=== PATIENT | female | born 1980 | race Two or more races ===

== ENCOUNTER 2018-08-14 09:45 | Observation (INO) | payer MEDICAID ==
[2018-08-14] MEDS ORDERED: PREN-145 OR (10:25)
== END 2018-08-14 11:50 | disposition home or self-care (01) | DRG 566 ==
LOC: LDRP 09:45
PROVIDERS: ADMIT Specialist; ATTEND Specialist
DX: O24.419 Gestational diabetes mellitus in pregnancy, unspecified control (principal); O09.523 Supervision of elderly multigravida, third trimester; Z3A.33 33 weeks gestation of pregnancy
CPT/HCPCS: 59025; 76818; 81002; 82948; G0378

== ENCOUNTER 2018-08-17 10:24 | Observation (INO) | payer MEDICAID ==
[~2018-08-17 10:24] MED LIST: PREN-145 OR
== END 2018-08-17 13:25 | disposition home or self-care (01) | DRG 566 ==
LOC: LDRP 10:24
PROVIDERS: ADMIT Obstetrics & Gynecology; ATTEND Obstetrics & Gynecology
DX: O24.419 Gestational diabetes mellitus in pregnancy, unspecified control (principal); O09.523 Supervision of elderly multigravida, third trimester; Z3A.33 33 weeks gestation of pregnancy
CPT/HCPCS: 59025; 76818; 81002; 82948; 82962; G0378

== ENCOUNTER 2018-08-24 11:00 | Observation (INO) | payer MEDICAID | END 2018-08-24 12:25 | disposition home or self-care (01) | DRG 566 | LOC: LDRP 11:00 | PROVIDERS: ADMIT Obstetrics & Gynecology; ATTEND Obstetrics & Gynecology | DX: O24.419 Gestational diabetes mellitus in pregnancy, unspecified control (principal); O09.523 Supervision of elderly multigravida, third trimester; Z3A.34 34 weeks gestation of pregnancy | CPT/HCPCS: 59025; 76818; 81002; 82962; G0378 ==

== ENCOUNTER 2018-08-27 09:45 | Observation (INO) | payer MEDICAID ==
[2018-08-27 10:55] LABS: Basophils # (auto) 0.1 uL; Basophils % (auto) 0.7 % (0.0-2.0); Eosinophils # (auto) 0 uL; Eosinophils % (auto) 0.5 % (0.0-7.0); Hematocrit 37.8 % (36.0-46.0); Hemoglobin 12.8 g/dL (12.2-16.2); Lymphocytes # (auto) 1.3 uL; Lymphocytes % (auto) 15.3 % (10.0-50.0); Mean Corpuscular Hemoglobin 29.8 pg (28.0-32.0); Mean Corpuscular Hgb Conc. 33.7 g/dL (32.0-36.0); Mean Corpuscular Volume 88.2 fL (80.0-100.0); Monocytes # (auto) 0.6 uL; Monocytes % (auto) 7.9 % (0.0-12.0); Neutrophils # (auto) 6.2 uL; Neutrophils % (auto) 75.6 % (37.0-80.0); Platelet Count (auto) 298 10^3/uL (140-450); Red Blood Cells 4.29 10^6/uL (4.0-5.20); Red Cell Distribution Width 14.2 % (11.8-14.3); White Blood Cell 8.2 10^3/uL (4.4-10.8)
[2018-08-27] MEDS ORDERED: GLYB2.5T8 PO (11:05)
[2018-08-28 05:09] LABS: RPR Non Reactive (Non Reactive)
== END 2018-08-27 11:50 | disposition home or self-care (01) | DRG 566 ==
LOC: LDRP 09:45
PROVIDERS: ADMIT Obstetrics & Gynecology; ATTEND Obstetrics & Gynecology
DX: O24.419 Gestational diabetes mellitus in pregnancy, unspecified control (principal); O26.893 Other specified pregnancy related conditions, third trimester; R76.8 Other specified abnormal immunological findings in serum; Z3A.35 35 weeks gestation of pregnancy
CPT/HCPCS: 36415; 59025; 76818; 81002; 82962; 85025; 86592; G0378

== ENCOUNTER 2018-08-31 09:45 | Observation (INO) | payer MEDICAID ==
[~2018-08-31] VITALS: Ht 160 cm; Wt 81.6 kg
[~2018-08-31 09:45] MED LIST changes: +GLYB2.5T8 PO
== END 2018-08-31 11:20 | disposition home or self-care (01) | DRG 566 ==
LOC: LDRP 09:45
PROVIDERS: ADMIT Specialist; ATTEND Specialist
DX: O24.419 Gestational diabetes mellitus in pregnancy, unspecified control (principal); Z3A.35 35 weeks gestation of pregnancy
CPT/HCPCS: 59025; 76818; 81002; 82962; G0378

== ENCOUNTER 2018-09-03 14:39 | Observation (INO) | payer MEDICAID | END 2018-09-03 16:20 | disposition home or self-care (01) | DRG 566 | LOC: LDRP 14:39 | PROVIDERS: ADMIT Obstetrics & Gynecology; ATTEND Obstetrics & Gynecology | DX: O24.419 Gestational diabetes mellitus in pregnancy, unspecified control (principal); Z3A.36 36 weeks gestation of pregnancy | CPT/HCPCS: 59025; 76818; 81002; 82948; 82962; G0378 ==

== ENCOUNTER 2018-09-07 09:40 | Observation (INO) | payer MEDICAID ==
[~2018-09-07] VITALS: Ht 162.6 cm; Wt 91.2 kg
== END 2018-09-07 11:25 | disposition home or self-care (01) | DRG 566 ==
LOC: LDRP 09:40
PROVIDERS: ADMIT Specialist; ATTEND Specialist
DX: O24.419 Gestational diabetes mellitus in pregnancy, unspecified control (principal); Z3A.36 36 weeks gestation of pregnancy
CPT/HCPCS: 59025; 76818; 81002; 82948; 82962; G0378

== ENCOUNTER 2018-09-10 15:14 | Observation (INO) | payer MEDICAID | END 2018-09-10 16:05 | disposition home or self-care (01) | DRG 566 | LOC: LDRP 15:14 | PROVIDERS: ADMIT Specialist; ATTEND Specialist | DX: O24.419 Gestational diabetes mellitus in pregnancy, unspecified control (principal); Z3A.37 37 weeks gestation of pregnancy | CPT/HCPCS: 59025; 76818; 81002; 82948; 82962; G0378 ==

== ENCOUNTER 2018-09-14 10:02 | Observation (INO) | payer MEDICAID | END 2018-09-14 11:10 | disposition home or self-care (01) | DRG 566 | LOC: LDRP 10:02 | PROVIDERS: ADMIT Obstetrics & Gynecology; ATTEND Obstetrics & Gynecology | DX: O24.419 Gestational diabetes mellitus in pregnancy, unspecified control (principal); Z3A.37 37 weeks gestation of pregnancy | CPT/HCPCS: 59025; 76818; 81002; 82948; G0378 ==

== ENCOUNTER 2018-09-17 09:45 | Observation (INO) | payer MEDICAID ==
[~2018-09-17] VITALS: Ht 162.6 cm; Wt 91.2 kg
[2018-09-17] MEDS ORDERED: NIFEdipine 10 MG CAP PO ONE ×2 (10:45→11:30)
[2018-09-17] MEDS ORDERED: TERBUTALINE SULFATE 1 MG/ML 1ML VIAL SC SCH (10:45)
[2018-09-18] MEDS ORDERED: NIF10C PO (06:54)
== END 2018-09-17 12:30 | disposition home or self-care (01) | DRG 566 ==
LOC: LDRP 09:45
PROVIDERS: ADMIT Obstetrics & Gynecology; ATTEND Obstetrics & Gynecology
DX: O24.419 Gestational diabetes mellitus in pregnancy, unspecified control (principal); Z3A.00 Weeks of gestation of pregnancy not specified
CPT/HCPCS: 59025; 76818; 81002; 82948; 82962; 94760; 96372; G0378

== ENCOUNTER 2018-09-17 19:07 | Inpatient (IN) | payer MEDICAID ==
[~2018-09-17] VITALS: Ht 157.5 cm; Wt 91.2 kg
[2018-09-17] MEDS: TERBUTALINE SULFATE 1 MG/ML 1ML VIAL SC SCH ×2 (19:15→19:35)
[2018-09-17] MEDS ORDERED: LACTATED RINGER'S 1,000 ML IV ONE (20:04)
[2018-09-17 21:02] LABS: Basophils # (auto) 0 uL; Basophils % (auto) 0.3 % (0.0-2.0); Eosinophils # (auto) 0 uL; Eosinophils % (auto) 0.3 % (0.0-7.0); Hematocrit 36.9 % (36.0-46.0); Hemoglobin 12.5 g/dL (12.2-16.2); Lymphocytes # (auto) 1.8 uL; Lymphocytes % (auto) 19.1 % (10.0-50.0); Mean Corpuscular Hemoglobin 29.8 pg (28.0-32.0); Mean Corpuscular Volume 87.8 fL (80.0-100.0); Monocytes % (auto) 10.6 % (0.0-12.0); Neutrophils # (auto) 6.4 uL; Neutrophils % (auto) 69.7 % (37.0-80.0); Nucleated Red Blood Cells % 0.1 %; Platelet Count (auto) 295 10^3/uL (140-450); Red Blood Cells 4.21 10^6/uL (4.0-5.20); White Blood Cell 9.2 10^3/uL (4.4-10.8)
[2018-09-17 21:08] LABS: INR 0.88 (0.9-1.15); Partial Thromboplastin Time 25.5 sec (23.78-33.04); Prothrombin Time 9.5 sec (9.27-12.13)
[2018-09-17 21:15] LABS: Albumin 2.6 g/dL (3.4-5.0); BUN/Creatinine Ratio 16.9; Calcium 8.3 mg/dL (8.5-10.1); Potassium 3.4 mmol/L (3.5-5.1)
[2018-09-17 21:18] LABS: Bilirubin, Total 0.2 mg/dL (0.2-1.0); Total Protein 6.8 g/dL (6.4-8.2)
[2018-09-17] MEDS ORDERED: TETRACAINE 1% INJ 2 ML VIAL IJ ONE (21:25)
[2018-09-17] MEDS ORDERED: ONDANSETRON HCL 4 MG/2 ML VIAL ONE (21:26)
[2018-09-17] MEDS ORDERED: MORPHINE SULF(PF) 0.5MG/ML 10ML VIAL ONE (21:26)
[2018-09-17] MEDS ORDERED: ceFAZolin 1GM VL ONE (21:26)
[2018-09-17] MEDS ORDERED: OXYTOCIN 10 UNIT/ML 10ML VIAL ONE (21:26)
[2018-09-17] MEDS ORDERED: SODIUM CHLORIDE LOCK 10 ML ONE (21:26)
[2018-09-17] MEDS ORDERED: fentaNYL CITRATE 100 MCG/2 ML VL ONE (21:26)
[2018-09-17] MEDS ORDERED: MIDAZOLAM HCL 1MG/1ML-2 ML VIAL ONE (21:26)
[2018-09-17 21:44] LABS: Urine Bacteria MANY /hpf (None Seen); Urine Blood Negative /uL (Negative); Urine Specific Gravity 1.007 (1.001-1.035); Urine WBC 1 /hpf (0 - 5)
[2018-09-17] MEDS ORDERED: ONDANSETRON HCL 4 MG/2 ML VIAL IV PRN (22:00)
[2018-09-17] MEDS ORDERED: MORPHINE SULFATE 4 MG/ML SYR/VIAL IV PRN (22:00)
[2018-09-17] MEDS ORDERED: ceFAZolin 1GM/50ML 50 ML IV SCH (22:00)
[2018-09-17] MEDS ORDERED: SODIUM CHLORIDE LOCK 20 ML ONE (22:51)
[2018-09-17] MEDS ORDERED: MEPERIDINE HCL (50 MG/ML) 1 ML VIAL ONE (23:04)
[2018-09-17] MEDS ORDERED: KETOROLAC TROMETH 30 MG/ML 1ML VIAL IV ONE (23:30)
[2018-09-17] MEDS ORDERED: ACCU-CHEK COMFORT CURVE STRIP VI ONE (23:30)
[2018-09-17] MEDS ORDERED: METOCLOPRAMIDE HCL 5MG/ml INJ 2ml VIAL IV ONE (23:30)
[2018-09-17] MEDS ORDERED: diphenhdrAMINE HCL 50 MG/1 ML VL IV PRN (23:30)
[2018-09-17] MEDS ORDERED: NALOXONE HCL 0.4 MG/ML VIAL IV PRN (23:30)
[2018-09-17] MEDS ORDERED: ACETAMINOPHEN IV 1000 MG/100ML (10MG/ML) IV ONE (23:30)
[2018-09-17] MEDS ORDERED: HYDROmorphone HCL 2 MG/ML VL IV PRN (23:30)
[2018-09-18] VITALS (15 sets, daily range): BP systolic 97–131; BP diastolic 56–87
--- NOTE | 2018-09-18 | NUR ---
Post Op for LDRP: Received patient from [employer] MECHANICRICHARD Goetz via bed to room. Patient A/A/Ox4, abdominal binder and bilateral SCD's are in place, IV fluids placed on pump and infusing per order, incisional site dressing clean/dry/intact and Cox Catheter to gravity draining clear yellow urine. Incentive Spirometer at bedside and instruction on proper use with return demonstration done by patient.
[2018-09-18] MEDS ORDERED: ceFAZolin 1GM/50ML 50 ML IV SCH ×2 (03:40→14:00)
[2018-09-18] MEDS: LACT. RINGERS/OXYTOCIN 20UNITS 1,000 ML IV SCH ×2 (04:31)
[2018-09-18] MEDS ORDERED: NIF10C PO (06:54)
[2018-09-18 08:18] LABS: Basophils # (auto) 0 uL; Basophils % (auto) 0.1 % (0.0-2.0); Eosinophils # (auto) 0 uL; Eosinophils % (auto) 0.2 % (0.0-7.0); Hematocrit 35.7 % (36.0-46.0); Hemoglobin 12.1 g/dL (12.2-16.2); Lymphocytes # (auto) 1.1 uL; Lymphocytes % (auto) 10.7 % (10.0-50.0); Mean Corpuscular Hemoglobin 30.3 pg (28.0-32.0); Mean Corpuscular Hgb Conc. 33.9 g/dL (32.0-36.0); Mean Corpuscular Volume 89.4 fL (80.0-100.0); Neutrophils # (auto) 7.8 uL; Platelet Count (auto) 237 10^3/uL (140-450); Red Blood Cells 3.99 10^6/uL (4.0-5.20); White Blood Cell 9.9 10^3/uL (4.4-10.8)
[2018-09-18] MEDS ORDERED: LACTATED RINGER'S 1,000 ML IV SCH (08:30)
--- NOTE | 2018-09-18 08:32 | NUR ---
DR. NELSON AT PT BEDSIDE, STATUS UPDATE GIVEN. DR. NELSON NOTIFIED THAT PT HAS ACTIVE BOWEL SOUNDS, DENIES FLATUS AT THIS TIME. ORDERS RECEIVED FROM DR. NELSON FOR PT TO AMBULATE, POST OP DAY 1 ORDERS, DECREASE IV LR FLUIDS TO 60ML/HR, KEEP VELÁZQUEZ CATHETER IN AND MEASURE OUTPUTS UNTIL 1900 TONIGHT THEN RE-EVALUATE. READ BACK AND VERIFIED ORDERS. WILL CARRY OUT.
[2018-09-18] MEDS ORDERED: HYDROcodone-ACET 5/325MG TAB PO PRN (10:00)
[2018-09-18] MEDS ORDERED: BISACODYL 10 MG RECT SUPP PR PRN (10:00)
[2018-09-18] MEDS: DOCUSATE CALCIUM 240 MG CAP PO SCH (10:34)
[2018-09-18] MEDS: DOCUSATE SOD 100 MG CAP PO SCH ×2 (10:34→21:05)
[2018-09-18] MEDS: IBUPROFEN 800 MG TAB PO PRN ×2 (10:39→21:05)
--- NOTE | 2018-09-18 11:15 | NUR ---
Ambulation: Patient OOB with standby assistance by RN. Patient ambulated to bathroom with steady gait. Patients renee catheter is patent and draining clear, yellow urine to gravity. Pericare teaching provided with returned demonstration by patient. Clean gown provided and bed linen changed. Patient ambulated back to bed with steady gait and no distress noted. Pt ambulated with steady gait to bedside chair. No s/s of distress or sob noted. Will continue to monitor.
[2018-09-18] MEDS: SIMETHICONE 80 MG CHEWABLE TABLET PO SCH ×3 (12:02→21:06)
[2018-09-18] MEDS: HYDROcodone-ACET 5/325MG TAB PO PRN ×3 (13:54→22:34)
[2018-09-18] MEDS: ceFAZolin 1GM/50ML 50 ML IV SCH (15:24)
--- NOTE | 2018-09-18 18:09 | NUR ---
PT REPORT GIVEN TO FLORENCIO RAMOS ON STABLE PATIENT. NO S/S OF DISTRESS OR SOB NOTED, RELINQUISHED CARE.
--- NOTE | 2018-09-18 18:10 | NUR ---
Received report, assumed care from Cesar RAMOS
--- NOTE | 2018-09-18 19:00 | NUR ---
Reviewed plan of care, discussed goals, and pain scale. Pt verbalized understanding. Initiated assessment. See flowsheet for complete data. Cox catheter removed with minimal discomfort per pt after baloon deflated. 200 cc's clear yellow urine in Cox bag documented in I's and O's.10/25 pain, admin 2 [place] and pt stated she is going to ambulate. Will reassess
--- NOTE | 2018-09-18 21:00 | NUR ---
Out of bed to void, 600 cc's clear yellow urine. Pt complains of pain, bilateral of site of incision. Encouraged pt to ambulate. Administered 800mg motrin PO.
--- NOTE | 2018-09-18 21:30 | NUR ---
Patient ambulated 400 feet, tolerated well.
--- NOTE | 2018-09-18 21:46 | NUR ---
Pt states pain is at a tolerable level 5/10.
[2018-09-19] VITALS (7 sets, daily range): BP systolic 107–125; BP diastolic 52–79
[2018-09-19] MEDS: ceFAZolin 1GM/50ML 50 ML IV SCH (00:05)
[2018-09-19] MEDS: HYDROcodone-ACET 5/325MG TAB PO PRN ×3 (02:38→10:42)
--- NOTE | 2018-09-19 07:22 | NUR ---
Encouraged patient to use IS devise and take deep breathes as well as ambulating. Patient verbalizes understanding. Addendum: 09/19/18 at 0722 by Luisa Hermosillo RN Amended: Links added.
[2018-09-19] MEDS: SIMETHICONE 80 MG CHEWABLE TABLET PO SCH ×4 (07:49→21:02)
[2018-09-19] MEDS: DOCUSATE CALCIUM 240 MG CAP PO SCH (09:37)
[2018-09-19] MEDS: IBUPROFEN 800 MG TAB PO PRN (09:37)
[2018-09-19] MEDS: DOCUSATE SOD 100 MG CAP PO SCH ×2 (09:37→21:02)
--- NOTE | 2018-09-19 14:45 | NUR ---
Spoke to Dr. Cowart regarding patient pain control . Patient continues to request [place] every 3-4 hours and is exceeding her Acetaminophen limit. Orders received to change Redford to 10/325 Q 4 hours as needed and also add Toradol 15 mg Q 6 hours scheduled for the next 24 hours and then Q 6 prn. Orders read back to be implemented.
[2018-09-19] MEDS ORDERED: KETOROLAC TROMETH 30 MG/ML 1ML VIAL IV PRN (15:00)
--- NOTE | 2018-09-19 17:48 | NUR ---
Spoke to Dr. Cowart reported patients complaint of chills suddenly and askign for blanket. Reported intial temp of 100.8 and 99.6 after cooling measures. Orders received to start Zosyn 3.6 IVPB at 50 ml/hour. Orders read back to be implemented. Continued care. Addendum: 09/19/18 at 1750 by Luisa Hermosillo RN Amended: Links added.
[2018-09-19] MEDS ORDERED: PIPERACILLIN-TAZOB 3.375GM 100 ML IV SCH (18:00)
[2018-09-19] MEDS ORDERED: ACETAMINOPHEN 325 MG TAB PO PRN (18:45)
--- NOTE | 2018-09-19 18:45 | NUR ---
Attempt IV start 18 guage, unsuccessful x's 1 attempt
[2018-09-19 18:57] LABS: Basophils # (auto) 0 uL; Basophils % (auto) 0.3 % (0.0-2.0); Eosinophils # (auto) 0 uL; Eosinophils % (auto) 0.4 % (0.0-7.0); Hematocrit 39.3 % (36.0-46.0); Lymphocytes # (auto) 1.1 uL; Lymphocytes % (auto) 10.6 % (10.0-50.0); Mean Corpuscular Hemoglobin 29.6 pg (28.0-32.0); Mean Corpuscular Volume 89.9 fL (80.0-100.0); Monocytes # (auto) 0.9 uL; Monocytes % (auto) 8.6 % (0.0-12.0); Neutrophils # (auto) 7.9 uL; Neutrophils % (auto) 80.1 % (37.0-80.0); Platelet Count (auto) 247 10^3/uL (140-450); Red Blood Cells 4.37 10^6/uL (4.0-5.20); Red Cell Distribution Width 15.2 % (11.8-14.3); White Blood Cell 9.9 10^3/uL (4.4-10.8)
--- NOTE | 2018-09-19 19:00 | NUR ---
Assessment complete, Patient returned from the bathroom after passing large amount of gas and small bowel movement. Assessed incision, at the site of incision, moist and pink. Peripad placed below pannis to absorb moisture.
--- NOTE | 2018-09-19 19:00 | NUR ---
Temperature 102.8, admin [place] 10/325 for pain and fever
[2018-09-19] MEDS: HYDROcodone-ACET 10/325MG TAB PO PRN ×2 (19:15→23:26)
--- NOTE | 2018-09-19 19:33 | NUR ---
IV to right wrist, 20g started, IV zosyn started as per ordered
[2018-09-19] MEDS: PIPERACILLIN-TAZOB 3.375GM 100 ML IV SCH (19:35)
--- NOTE | 2018-09-19 19:45 | NUR ---
Update provided to Dr Cowart, labs, temperature, New IV start, New orders received to implement cooling measures.
--- NOTE | 2018-09-19 19:59 | NUR ---
Cooling measures admin icepacks to groin, armpits and neck. Pt is drinking 750 ice water, IV zosyn continues to run at 33.33 mL/hr to be completed in 3 hours
--- NOTE | 2018-09-19 20:33 | NUR ---
In depth education provided with Incentive spirometer. Pt able to reach 1100. Pt verbalized understanding regarding IS exercise to be completed 10x's hour.
[2018-09-19] MEDS: KETOROLAC TROMETH 30 MG/ML 1ML VIAL IV PRN (21:01)
--- NOTE | 2018-09-19 21:10 | NUR ---
Oral temperature 102.7, ketoraloc admin per MD orders
[2018-09-19] MEDS ORDERED: WITCH HAZEL-GLYCERIN PAD TOP PRN (22:15)
[2018-09-20] MEDS: PIPERACILLIN-TAZOB 3.375GM 100 ML IV SCH ×4 (01:40→17:35)
[2018-09-20 03:00] VITALS: BP 101/63
[2018-09-20] MEDS: KETOROLAC TROMETH 30 MG/ML 1ML VIAL IV PRN ×2 (03:00→10:36)
[2018-09-20] MEDS: HYDROcodone-ACET 5/325MG TAB PO PRN (03:32)
[2018-09-20] MEDS: SIMETHICONE 80 MG CHEWABLE TABLET PO SCH ×4 (08:02→22:30)
[2018-09-20] MEDS: HYDROcodone-ACET 10/325MG TAB PO PRN ×4 (08:36→21:46)
[2018-09-20] MEDS: DOCUSATE CALCIUM 240 MG CAP PO SCH (10:35)
[2018-09-20] MEDS: DOCUSATE SOD 100 MG CAP PO SCH ×2 (10:35→22:30)
[2018-09-20 11:00] VITALS: BP 110/71
[2018-09-20 15:00] VITALS: BP 114/79
[2018-09-20] MEDS: IBUPROFEN 800 MG TAB PO PRN (16:29)
[2018-09-20 18:50] VITALS: BP 110/74
--- NOTE | 2018-09-20 22:15 | NUR ---
Spoke with KELLY JORDAN via telephone report given on pt's status: pt has been afebrile and that pt is complaining of a rash around her abd. where the abd. binder was placed, and reported that I had the patient shower to help relieve the discomfort of the rash. After her shower the rash appeared less red and pt verbalized relief of discomfort from rash after her shower. Per KELLY pt may have Benadryl for the itching and that Zosyn may be discontinued.
[2018-09-20 23:00] VITALS: BP 127/76
--- NOTE | 2018-09-20 23:02 | NUR ---
IV infilterate noted to right hand. IV discontinued and catheter removed and intact.
[2018-09-21] MEDS: IBUPROFEN 800 MG TAB PO PRN ×2 (00:52→08:29)
[2018-09-21 03:30] VITALS: BP 124/78
[2018-09-21] MEDS: HYDROcodone-ACET 10/325MG TAB PO PRN (03:52)
[2018-09-21] MEDS ORDERED: MEASLES, MUMPS & RUBELLA VAC(MMRII) 0.5ML SC ONE (07:00)
[2018-09-21 07:15] VITALS: BP 11/75
--- NOTE | 2018-09-21 07:15 | NUR ---
CALLED Ann [employer] DRAWER TO MAKE AWARE PATIENT TEMP IS 99.3 TAKEN TWICE 5 MIN APART. PATIENT HAS A RASH THAT IS WARM TO THE TOUCH ALL OVER ABD AREA. NEW ORDERS RECEIVED START AN IV AND START MEDICATION ZOSYN AGAIN AND GIVE HYDROCORTISONE CREAM 1% BID.
--- NOTE | 2018-09-21 07:15 | NUR ---
C/S Staple Removal DC Note: Orders received to remove alexander PER Ann [employer] MAKER. Alexander removed using sterile technique. Lower abdominal incision approximated, no drainage/redness/inflammation visualized at time of removal. Steri-strips applied. Education provided on incisional care. Patient verbalized understanding and willingness to comply to instructions/teaching provided.
[2018-09-21] MEDS ORDERED: PIPERACILLIN-TAZOB 3.375GM 100 ML IV SCH (08:00)
[2018-09-21] MEDS ORDERED: cefTRIAXone SOD 1,000 MG VL IM ONE (08:45)
--- NOTE | 2018-09-21 08:45 | NUR ---
SBAR REPORT GIVEN TO DR. NELSON PATIENT HAS NO IV SITE AVAILABLE READ ALL VITALS AND PATIENT HAS A RASH ON ABD AREA . NEW ORDERS RECEIVED GIVE 1 GRAM ROCEPHIN BY IM AND CALL PHARMACY OF CHOICE MEDICATION 500 MG/PO/QID TIMES 7 DAYS.PATIENT WANTS [facility] IN [place] ON [address] PER PATIENT.
--- NOTE | 2018-09-21 09:05 | NUR ---
CALLED PHARMACY OF PATIENTS CHOICE [facility] [phone] WITH MEDICATION KEFLEX 500 MG/PO QID/TIMES 7 .
--- NOTE | 2018-09-21 09:30 | NUR ---
Discharge: Discharge instructions given as ordered. Pt encouraged to follow up with [employer] SUPERVISOR as instructed. All questions and concerns addressed. Patient verbalized understanding. Medication reconciliation completed and copy given to patient. pATIENT REFUSED MMR AND STATES SHE WILL FOLLOW UP WITH DR. NELSON ON NEXT APPOINTMENT. Patient encouraged to prepare to depart unit.
--- NOTE | 2018-09-21 09:30 | NUR ---
Discharge: Discharge instructions given to mother of baby as ordered. Copies of and hearing screening, along with vaccination record given to mother. Mother encouraged to follow up with [facility]ing Paralegal of choice and to give envelope with infants information to case management associate at 1st office visit. All questions and concerns addressed. Mother of baby verbalized understanding and agreed to comply. Mother of baby encouraged to prepare for departure and notify RN ready to leave room for ID band removal/verification and car seat check.
[2018-09-21] MEDS ORDERED: HYDROCORTONE 1% TOPICAL CREAM 30 GM TUBE TOP SCH (10:00)
[2018-09-21] MEDS: DOCUSATE CALCIUM 240 MG CAP PO SCH (10:00)
[2018-09-21] MEDS: DOCUSATE SOD 100 MG CAP PO SCH (10:15)
--- NOTE | 2018-09-21 10:22 | NUR ---
Discharge: Patient taken to vehicle via AMBULATION with all personal belongings, accompanied by staff and family member. No distress noted at time of departure, no adverse changes in status since initial assessment.
== END 2018-09-21 10:22 | disposition home or self-care (01) | DRG 540 ==
LOC: LDRP 19:07 → OBSVTOIN 20:43 → LDRP 09-18 19:58
PROVIDERS: ADMIT Obstetrics & Gynecology; ATTEND Obstetrics & Gynecology
PROC: 0UL70CZ Occlusion of Bilateral Fallopian Tubes with Extraluminal Device, Open Approach (ICD-10-PCS; 2018-09-17)
PROC: 10D00Z1 Extraction of Products of Conception, Low, Open Approach (ICD-10-PCS; principal; 2018-09-17 21:30)
DX: O34.211 Maternal care for low transverse scar from previous cesarean delivery (principal); O24.429 Gestational diabetes mellitus in childbirth, unspecified control; Z37.0 Single live birth; Z3A.34 34 weeks gestation of pregnancy
CPT/HCPCS: 36415; 51702; 59025; 76818; 80053; 81001; 81002; 82948; 82962; 85025; 85610; 85730; 86592; 86850; 86900; 86901; 94760; 96361; 96366; 96372; 96374; 96375; G0378; J0131; J0690; J1885; J2250; J2405; J2543; J2590

== ENCOUNTER 2018-09-24 15:08 | Emergency (ER) | payer MEDICAID ==
[~2018-09-24] VITALS: Ht 160 cm; Wt 88.0 kg
[~2018-09-24 15:08] MED LIST changes: -GLYB2.5T8 PO
[2018-09-24 15:59] VITALS: BP 125/91
[2018-09-24] MEDS ORDERED: diphenhdrAMINE HCL 50 MG/1 ML VL IM ONE (16:15)
[2018-09-24] MEDS ORDERED: EPINEPHrine HCL 1 MG/1 ML AMP SC ONE (16:15)
== END 2018-09-24 16:56 | disposition home or self-care (01) ==
LOC: ER 15:08
DX: O98.83 Other maternal infectious and parasitic diseases complicating the puerperium (principal); B37.2 Candidiasis of skin and nail; T78.40XA Allergy, unspecified, initial encounter; X58.XXXA Exposure to other specified factors, initial encounter
CPT/HCPCS: 96372; 99283; J0171; J1200

== ENCOUNTER 2022-08-09 14:58 | Emergency (ER) | payer SELFPAY ==
[~2022-08-09] VITALS: Ht 157.5 cm; Wt 86.0 kg
[2022-08-09 15:08] VITALS: BP 121/89
[2022-08-09 15:22] LABS: Basophils # (auto) 0.1 10 ^3/uL (0-0.2); Basophils % (auto) 0.7 % (0.0-2.0); Eosinophils # (auto) 0.2 10 ^3/uL (0-0.8); Hemoglobin 12.5 g/dL (12.2-16.2); Lymphocytes % (auto) 27.9 % (10.0-50.0); Monocytes % (auto) 9.3 % (0.0-12.0)
[2022-08-09 15:24] LABS: Eosinophils % (auto) 1.6 % (0.0-7.0); Hematocrit 37.8 % (36.0-46.0); Lymphocytes # (auto) 2.9 10 ^3/uL (0.4-5.4); Mean Corpuscular Hemoglobin 26.9 pg (28.0-32.0); Mean Corpuscular Hgb Conc. 33.2 g/dL (32.0-36.0); Neutrophils # (auto) 6.3 10 ^3/uL (1.6-8.6); Neutrophils % (auto) 60.5 % (37.0-80.0); Nucleated Red Blood Cells % 0.1 %; Red Blood Cells 4.67 10^6/uL (4.0-5.20); White Blood Cell 10.3 10^3/uL (4.4-10.8)
[2022-08-09] MEDS ORDERED: ALBUTEROL SULF 2.5 MG/0.5ML(0.5%) NEB SOLN NEB ONE (15:30)
[2022-08-09] MEDS ORDERED: ASPirin 325 MG TAB PO ONE (15:30)
[2022-08-09 15:41] LABS: Albumin 3.8 g/dL (3.4-5.0); BUN/Creatinine Ratio 25.4 (10.0-20.0); Magnesium 2.3 mg/dL (1.6-2.6); Potassium 3.8 mmol/L (3.5-5.1)
[2022-08-09 15:48] LABS: Bilirubin, Total 0.3 mg/dL (0.2-1.0); Total Protein 7.5 g/dL (6.4-8.2)
[2022-08-09 16:26] LABS: INR 0.92 (0.9-1.15); Partial Thromboplastin Time 26.6 sec (24.6-33.4)
[2022-08-09 18:33] LABS: Urine Bacteria FEW /hpf (None Seen); Urine Blood Negative /uL (Negative); Urine Mucus FEW (None Seen); Urine Specific Gravity 1.021 (1.001-1.035); Urine WBC 1 /hpf (0 - 5)
[2022-08-09 18:49] LABS: Alcohol, Urine < 3.0 mg/dL (0-10); Amphetamine Screen, Urine NEGATIVE (NEGATIVE); Barbiturate Scree,Urine NEGATIVE (NEGATIVE); Benzodiazephine Screen, Urine NEGATIVE (NEGATIVE); Cannabinoid Screen, Urine NEGATIVE (NEGATIVE); Cocaine Screen, Urine NEGATIVE (NEGATIVE); Opiate Scree,Urine NEGATIVE (NEGATIVE); Phencyclidine Screen, Urine NEGATIVE (NEGATIVE)
== END 2022-08-09 19:40 | disposition home or self-care (01) ==
LOC: ER 14:58
DX: R07.2 Precordial pain (principal); Z90.49 Acquired absence of other specified parts of digestive tract; Z98.890 Other specified postprocedural states
CPT/HCPCS: 36415; 71045; 80053; 80307; 81001; 83735; 83880; 84484; 85025; 85379; 85610; 85730; 93005; 94640